=== PATIENT | male | born 1985 | race Caucasian/White ===

== ENCOUNTER 2018-05-15 18:13 | Emergency (ER) | payer OTHER ==
[~2018-05-15] VITALS: Ht 185.4 cm; Wt 113.4 kg
== END 2018-05-15 21:37 | disposition home or self-care (01) ==
LOC: ER 18:13
DX: M54.5 Low back pain (principal)

== ENCOUNTER → 2019-08-17 | Emergency (ER) | payer OTHER ==
[~2019-08-17] VITALS: Ht 185.4 cm; Wt 113.4 kg
== END | disposition left against medical advice (07) ==
LOC: ER 23:16
DX: Z53.20 Procedure and treatment not carried out because of patient's decision for unspecified reasons (principal)